=== PATIENT | male | born 1970 | race Caucasian/White ===

== ENCOUNTER 2018-10-29 10:48 | Day surgery (SDC) | payer OTHER ==
[~2018-10-29 10:48] MED LIST: HYDROCODONE/APAP 5/325 TAB PO SCH
[2018-10-29] MEDS ORDERED: ONDANSETRON 4 MG/2 ML VIAL IVP ONE (11:16)
[2018-10-29] MEDS ORDERED: HYDROmorphONE/DILAUDID 2 MG/ML INJ IVP ONE (11:16)
[2018-10-29] MEDS ORDERED: NS 1,000 ML IV ONE (11:16)
[2018-10-29 11:30] LABS: PLATELET COUNT 180 10^3/uL (150-400)
[2018-10-29] MEDS ORDERED: IOPAMIDOL (ISOVUE 370) 75 ML BTL IV ONE (12:17)
--- NOTE | 2018-10-29 12:21 | EDPHY ---
H & P Time Seen by Provider: 10/29/18 11:15 HPI/ROS: HPI Right lower abdominal pain. 48-year-old male by private vehicle. He comes from Urgent Care for evaluation for acute appendicitis. The patient reports that he has had worsening right lower quadrant pain for the last 36 hr. He reports he has had nausea. He had 1 episode self-induced vomiting last night after trying to eat some dinner. He has had nothing p.o. Since that time. No prior abdominal surgical history. Last bowel movement was yesterday. He denies any bloody or melenic stool. No diarrhea. ROS: Constitutional: No fever, no chills. No weakness. Eyes: No discharge. No changes in vision. ENT: No sore throat. No nasal congestion or rhinorrhea. Respiratory: No cough. No shortness of breath. Cardiac: No chest pain, no palpitations. Gastrointestinal: As above, no diarrhea. Genitourinary: No hematuria. No dysuria or increased frequency with urination. No testicular pain. Musculoskeletal: No back pain. No neck pain. No myalgias or arthralgias. Skin: No rashes. Neurological: No headache. No focal weakness or altered sensation. Past medical history: Denies any past medical or surgical history. Social history: Nonsmoker. No alcohol. Here by himself. Physical Exam: General Appearance: Alert, he appears uncomfortable but not in distress. This patient is responding to questions appropriately and in full sentences. This patient appears well-hydrated and well-nourished. Eyes: Pupils equal and round no pallor or injection. No lid edema, erythema or injection. Respiratory: There are no retractions, lungs are clear to auscultation with good air movement bilaterally. Cardiovascular: Regular rate and rhythm. No murmur. Gastrointestinal: Abdomen guarded with focal right lower quadrant tenderness on palpation at McBurney's point, no masses, bowel sounds normal. No Colon sign. Neurological: Motor sensory function is grossly intact. Cranial nerves are normal. Gait is normal. Skin: Warm and dry, no rashes. Musculoskeletal: Neck is supple and nontender. Extremities are symmetrical. All joints range without pain or impingement. Psychiatric: No agitation. No depression. Database: EKG: Imaging: CT abdomen and pelvis with IV contrast: Significant for acute appendicitis with dilatation and an appendicolith noted distal appendix. Results were discussed with staff radiologist Dr. Leonard Pierce. Procedures: Emergency department course: Triage vital signs reviewed and are normal. Patient is afebrile. IV placed. He was placed on a monitor. He was started on IV normal saline with 1 L to be given over the next hour. He was initially given 0.5 mg of IV hydromorphone for pain and 4 mg of IV Zofran for nausea. Will be sent for CT imaging of his abdomen and pelvis to evaluate for appendicitis. 12:45 p.m., spoke with on-call surgeon Dr. Víctor Simeon. Discussed diagnosis of acute appendicitis. Patient will be given 2 g of IV Mefoxin in the emergency department. Dr. Simeon will admit this patient and take the patient to the operating room for further management. 2:50 p.m., patient re-evaluated, resting comfortably at this time. Pain currently well controlled. Diagnosis of appendicitis discussed with him. Plan for operative management reviewed. All of his questions were answered. The patient was admitted in stable condition under the care of Dr. Simeon. Differential Diagnosis: The differential diagnosis on this patient includes but is not limited to appendicitis. Testicular torsion, ureterolithiasis, cholecystitis, volvulus unlikely. This represents a partial list of diagnoses considered. These considerations are based on history, physical exam, past history, reassessment and diagnostic testing. Smoking Status: Never smoked Constitutional: Initial Vital Signs Temperature (C) 36.8 C 10/29/18 11:04 Heart Rate 54 L 10/29/18 11:04 Respiratory Rate 16 10/29/18 11:04 Blood Pressure 113/76 10/29/18 11:04 O2 Sat (%) 96 10/29/18 11:04 O2 Delivery Mode Room Air Allergies/Adverse Reactions: No Known Allergies Allergy (Unverified 10/29/18 11:03) Home Medications: Medication Instructions Recorded Allergy Shots 10/29/18 Medical Decision Making - Data Points Laboratory Results: Laboratory Results 10/29/18 11:15 10/29/18 11:15 10/29/18 10/29/18 11:15 11:15 WBC 13.49 10^3/uL H 10^3/uL (3.80-9.50) RBC 5.07 10^6/uL 10^6/uL (4.40-6.38) Hgb 15.3 g/dL g/dL (13.7-17.5) Hct 45.5 % % (40.0-51.0) MCV 89.7 fL fL (81.5-99.8) MCH 30.2 pg pg (27.9-34.1) MCHC 33.6 g/dL g/dL (32.4-36.7) RDW 13.1 % % (11.5-15.2) Plt Count 180 10^3/uL 10^3/uL (150-400) MPV 10.3 fL fL (8.7-11.7) Neut % (Auto) 80.2 % H % (39.3-74.2) Lymph % (Auto) 11.5 % L % (15.0-45.0) Cache % (Auto) 7.3 % % (4.5-13.0) Eos % (Auto) 0.5 % L % (0.6-7.6) Baso % (Auto) 0.4 % % (0.3-1.7) Nucleat RBC Rel Count 0.0 % % (0.0-0.2) Absolute Neuts (auto) 10.81 10^3/uL H 10^3/uL (1.70-6.50) Absolute Lymphs (auto) 1.55 10^3/uL 10^3/uL (1.00-3.00) Absolute Monos (auto) 0.99 10^3/uL H 10^3/uL (0.30-0.80) Absolute Eos (auto) 0.07 10^3/uL 10^3/uL (0.03-0.40) Absolute Basos (auto) 0.05 10^3/uL 10^3/uL (0.02-0.10) Absolute Nucleated RBC 0.00 10^3/uL 10^3/uL (0-0.01) Immature Gran % 0.1 % % (0.0-1.1) Immature Gran # 0.02 10^3/uL 10^3/uL (0.00-0.10) Sodium 140 mEq/L mEq/L (135-145) Potassium 4.2 mEq/L mEq/L (3.5-5.2) Chloride 107 mEq/L mEq/L (97-110) Carbon Dioxide 24 mEq/l mEq/l (22-31) Anion Gap 9 mEq/L mEq/L (6-14) BUN 26 mg/dL H mg/dL (7-23) Creatinine 0.9 mg/dL mg/dL (0.7-1.3) Estimated GFR > 60 Glucose 92 mg/dL mg/dL (70-100) Calcium 9.3 mg/dL mg/dL (8.5-10.4) Medications Given: Discontinued Medications Hydromorphone HCl (Dilaudid) 0.5 mg IVP EDNOW ONE Stop: 10/29/18 11:17 Last Admin: 10/29/18 11:29 Dose: 0.5 mg Sodium Chloride (Ns) 1,000 mls @ 0 mls/hr IV EDNOW ONE; Wide Open PRN Reason: Protocol Stop: 10/29/18 11:17 Last Admin: 10/29/18 11:29 Dose: 1,000 mls Ondansetron HCl (Zofran) 4 mg IVP EDNOW ONE Stop: 10/29/18 11:17 Last Admin: 10/29/18 11:29 Dose: 4 mg Departure - Departure Disposition: [facility] Inpatient Acute Clinical Impression: Acute appendicitis Referrals: NONE *PRIMARY CARE P,. [Primary Care Provider] - As per Instructions
[2018-10-29] MEDS ORDERED: cefOXitin SODIUM 2 GM in NS 100 ML IV ONE (12:45)
[2018-10-29] MEDS ORDERED: LR 1,000 ML IV ONE (14:13)
[2018-10-29] MEDS ORDERED: ACETAMINOPHEN 500 MG TAB PO PRN (15:20)
[2018-10-29] MEDS ORDERED: HYDROmorphONE/DILAUDID 2 MG/ML INJ IVP PRN (15:20)
[2018-10-29] MEDS ORDERED: ONDANSETRON 4 MG/2 ML VIAL IVP PRN (15:20)
[2018-10-29] MEDS ORDERED: MIDAZOLAM 2 MG/2 ML VIAL IVP ONE (15:20)
[2018-10-29] MEDS ORDERED: ALBUTEROL 3 ML DEYVIAL IH PRN (15:20)
[2018-10-29] MEDS ORDERED: NALOXONE HCL 0.4 MG/ML INJ IVP PRN (15:20)
[2018-10-29] MEDS ORDERED: oxyCODONE IR 5 MG TAB PO PRN (15:20)
[2018-10-29] MEDS ORDERED: fentaNYL 100 MCG/2 ML INJ IVP PRN (15:20)
[2018-10-29] MEDS ORDERED: PROMETHAZINE HCL 25 MG/ML INJ IVP PRN (15:20)
--- NOTE | 2018-10-29 15:22 | PDANEPAE ---
ANE History of Present Illness Lap Appy PAYAL Past Medical History - Cardiovascular History Hx Hypertension: No Hx Arrhythmias: No - Pulmonary History Hx COPD: No Hx Asthma/Reactive Airway Disease: No Hx Oxygen in Use at Home: No Hx Sleep Apnea: No - Endocrine History Hx Diabetes: No ANE Review of Systems Review of Systems: - Exercise capacity METS (RN): 4 METS ANE Patient History - Allergies Allergies/Adverse Reactions: No Known Allergies Allergy (Verified 10/29/18 13:05) - Home Medications Home Medications: Glucosamine/Chondroitin [Glucosamine/Chondroitin (*)] 1 each PO DAILY 10/29/18 [ Last Taken 10/28/18] Herbals/Supplements -Info Only 1 ea PO DAILY 10/29/18 [Last Taken Unknown] Ibuprofen/Diphenhydramine Cit [MOTRIN PM CAPLET] 3 each PO HS PRN 10/29/18 [ Last Taken 10/28/18] Magnesium Oxide [Magnesium Oxide 400 mg (*)] 400 mg PO HS 10/29/18 [Last Taken 10/28/18] [place]worth-3 Fatty Acids [Fish Oil 1000 mg (*)] 1,000 mg PO DAILY 10/29/18 [Last Taken 10/28/18] - NPO status NPO Since - Liquids (Date): 10/28/18 NPO Since - Liquids (Time): 14:00 NPO Since - Solids (Date): 10/27/18 NPO Since - Solids (Time): 14:00 - Smoking Hx Smoking Status: Never smoked PAYAL Labs/Vital Signs - Labs Result Diagrams: 10/29/18 11:15 10/29/18 11:15 - Vital Signs Blood Pressure: 121/80 Heart Rate: 53 Respiratory Rate: 16 O2 Sat (%): 97 Height: 185.42 cm Weight: 77.111 kg ANE Physical Exam - Airway Neck exam: FROM Mallampati Score: Class 2 - Pulmonary Pulmonary: clear to auscultation - Cardiovascular Cardiovascular: regular rate and rhythym - ASA Status ASA Status: I ANE Anesthesia Plan Anesthesia Plan: general endotracheal anesthesia
[2018-10-29] MEDS ORDERED: BUPIVACAINE/EPI 0.5% 30 ML SDV ONE (17:46)
[2018-10-29] MEDS ORDERED: fentaNYL 100 MCG/2 ML INJ ONE ×4 (18:03→19:16)
[2018-10-29] MEDS ORDERED: PROPOFOL 200 MG/20 ML VIAL ONE (18:09)
[2018-10-29] MEDS ORDERED: fentaNYL 100 MCG/2 ML INJ IVP ONE ×2 (18:15→18:30)
[2018-10-29] MEDS ORDERED: ROCURONIUM 50 MG/5 ML VIAL ONE (18:44)
[2018-10-29] MEDS ORDERED: DEXAMETHASONE 4 MG/ML VIAL ONE ×2 (18:44)
[2018-10-29] MEDS ORDERED: SUGAMMADEX SODIUM 200 MG/2 ML VIAL IVP ONE (18:45)
--- NOTE | 2018-10-29 19:04 | POSTANESTH ---
Post Anesthetic Evaluation Cardiovascular Status: Normal, Stable Respiratory Status: Normal, Stable Level of Consciousness/Mental Status: Can Participate in Eval, Mildly Sleepy, Arousable Pain Control: Adequate, Prn Tx Ordered Nausea/Vomiting Control: Adequate, Prn Tx Ordered Complications Possibly Related to Anesthesia: None Noted
--- NOTE | 2018-10-29 19:24 | POSTOPPROG ---
Post Op Note Date of Operation: 10/29/18 Surgeon: Víctor Simeon Pre-op Diagnosis: acute appy Post-op Diagnosis: same Indication: same Procedure: lap appy Findings: acute appy, retrocedcal Inf/Abcess present in the surg proc area at time of surgery?: No Specimen(s): appendix
[2018-10-29 20:27] VITALS: BP 122/68
--- NOTE | 2018-10-29 20:34 | GOP ---
DATE OF ADMISSION: 10/29/2018 PREOPERATIVE DIAGNOSIS: Acute appendicitis. POSTOPERATIVE DIAGNOSIS: Acute appendicitis. OPERATION: Laparoscopic appendectomy. SURGEON: Dr. Simeon. LUGGER: NISSA Sales. INDICATIONS: 48-year-old male with CT-documented acute appendicitis. DESCRIPTION OF PROCEDURE: General anesthesia: The abdomen was scrubbed with ChloraPrep and draped i n the usual sterile fashion. Infraumbilical incision made. A Veress needle was used to achieve a pn eumoperitoneum. A 12 mm port was placed. Two additional 5 mm ports were placed. The viscera were e xamined. The appendix was retrocecal, stuck to the surrounding tissues but easily mobilized with amor nt dissection. A harmonic scalpel took down the mesoappendix and when the appendix was free right to its junction with the cecum it was stapled on the cecum with an Endo-XIMENA stapler blue cartridge. Th e appendix was placed in an Endopouch and extracted. The small amount of intraabdominal fluid noted was sucked out. No bleeding. Gas vented from the abdomen. The fascial defect at the umbilicus clos ed with 0 Vicryl. Skin incisions all closed with 4-0 Vicryl and Dermabond. The patient tolerated th e procedure well. /[id number]/MODL
== END 2018-10-29 20:55 | disposition home or self-care (01) ==
LOC: UNDOADMOB 12:47 → FSGY 12:47 → UNDODISOB 20:55 → FSGY 20:55
PROVIDERS: ATTEND Surgery
PROC: 0DTJ4ZZ Resection of Appendix, Percutaneous Endoscopic Approach (ICD-10-PCS; principal; 2018-10-29 17:00)
DX: K35.80 Unspecified acute appendicitis (principal)
CPT/HCPCS: 96365; J0694; J1100; J1170; J2405; J2704; J3010; Q9967